=== PATIENT | female | born 1990 | race Caucasian/White ===

== ENCOUNTER 2017-10-09 14:54 | Emergency (ER) | payer BC ==
[~2017-10-09] VITALS: Ht 170.2 cm; Wt 81.6 kg
[2017-10-09] MEDS ORDERED: CYCLOBENZAPRINE 10 MG TABLET PO (15:35)
[2017-10-09] MEDS ORDERED: LEVO75TA PO (15:35)
[2017-10-09] MEDS ORDERED: MUPIROCIN 2% OINTMENT TOP (15:35)
[2017-10-09] MEDS ORDERED: GABAPENTIN 800 MG TABLET PO (15:35)
[2017-10-09] MEDS ORDERED: GABA600T2 PO (15:35)
[2017-10-09] MEDS ORDERED: QUET200T PO (15:35)
[2017-10-09] MEDS ORDERED: SULF1TAB48 PO (15:35)
[2017-10-09] MEDS ORDERED: BUPR150T5 PO (15:36)
[2017-10-09] MEDS ORDERED: LET TOPICAL SOLUTION 8 ML UDC TP ONE (16:00)
[2017-10-09] MEDS ORDERED: SODIUM BICARBONATE 4.2 % (NEUT) 5 ML VIAL TP ONE (16:00)
[2017-10-09] MEDS ORDERED: LIDOCAINE HCL 2% 20 ML VIAL TP ONE (16:00)
[2017-10-09] MEDS ORDERED: LET TOPICAL SOLUTION 8 ML UDC ONE ×2 (16:45→17:02)
[2017-10-09] MEDS ORDERED: LIDOCAINE HCL 2% 20 ML VIAL ONE (16:45)
--- NOTE | 2017-10-09 17:04 | NUR ---
26 YEARS OLD FEMALE WITH LEFT HAND ABCESS FROM IVDU, I/D SET UP AT BEDSIDE READY FOR ER MD.
[2017-10-09] MEDS ORDERED: MUPIROCIN 2% OINT 22 GM TUBE TP ONE (17:30)
[2017-10-09 17:38] VITALS: BP 120/70
[2017-10-09] MEDS ORDERED: MUPIROCIN 2% OINT 22 GM TUBE ONE (17:38)
--- NOTE | 2017-10-09 17:40 | NUR ---
LEFT HAND DRESSING APPLIED AFTER I/D AFTER CARE REVIEWED UNDERSTOOD LEFT ER WITH FAMILY ALERT, ORIENTED X4 AMBULATORY WITH STEADY GAIT.
== END 2017-10-09 17:41 | disposition home or self-care (01) ==
LOC: ER 14:55
DX: L02.512 Cutaneous abscess of left hand (principal); L08.89 Other specified local infections of the skin and subcutaneous tissue; F32.9 Major depressive disorder, single episode, unspecified; F41.9 Anxiety disorder, unspecified; Z86.718 Personal history of other venous thrombosis and embolism; Z88.8 Allergy status to other drugs, medicaments and biological substances
CPT/HCPCS: A4663; J3490